=== PATIENT | female | born 1990 | race Caucasian/White ===

== ENCOUNTER 2017-05-11 20:23 | Emergency (ER) | payer BC, SELFPAY ==
[2017-05-11] MEDS ORDERED: Ondansetron HCl/PF 4 MG/2 ML Vial ONE (20:54)
[2017-05-11] MEDS ORDERED: Lorazepam 2 MG/ML VIAL ONE (20:54)
[2017-05-11] MEDS ORDERED: Fentanyl 100 MCG/2 ML VIAL ONE (20:54)
[2017-05-11] MEDS ORDERED: Diprivan 20 ML ONE (21:48)
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
--- NOTE | 2017-05-12 00:07 | RAD ---
POST REDUCTION RADIOGRAPHS LEFT WRIST 05/11/17 AP and lateral views left wrist is obtained. Images demonstrate status post reduction of the distal left radial fracture. Post reduction images d emonstrate good post anatomic alignment post reduction. Ulnar styloid fracture is again seen. The fr acture does appear to have extended intra-articularly into the articulating surface of the distal le ft radius. IMPRESSION: Status post reduction of reversed Colles' fracture a well as near anatomic alignment of the ulnar st yloid fracture. POS: [facility]
== END 2017-05-11 23:48 | disposition home or self-care (01) ==
LOC: ERS 20:23
DX: S52.532A Colles' fracture of left radius, initial encounter for closed fracture (principal); S52.612A Displaced fracture of left ulna styloid process, initial encounter for closed fracture; J45.909 Unspecified asthma, uncomplicated; F43.10 Post-traumatic stress disorder, unspecified; V18.4XXA Pedal cycle driver injured in noncollision transport accident in traffic accident, initial encounter
CPT/HCPCS: 25605; 96374; 96375; 99152; J2060; J2405; J2704; J3010